=== PATIENT | female | born 1970 | race Caucasian/White ===

== ENCOUNTER 2018-11-24 06:20 | Day surgery (SDC) | payer BC ==
[~2018-11-24 06:20] MED LIST: CEFAZOLIN 2 GM/50 ML (PMX) 50 ML IVPB
[2018-11-24] MEDS: SOD CHLORIDE 0.9% 1,000 ML IV (06:42)
[2018-11-24] MEDS ORDERED: BACITRACIN 0.9 GM OINT (07:58)
[2018-11-24] MEDS ORDERED: BUPIVACAINE 0.5% (SDV) 30 ML INJ (07:58)
[2018-11-24] MEDS ORDERED: FENTAnyl 50 MCG/ML VIAL (08:29)
[2018-11-24] MEDS ORDERED: MIDAZOLAM 1 MG/ML 2 ML INJ (08:30)
[2018-11-24] MEDS ORDERED: ONDANSETRON 4 MG INJ (08:31)
[2018-11-24] MEDS: LIDOCAINE 1% (MPF) 30 ML INJ (09:00)
[2018-11-24] MEDS: BUPIVACAINE 0.5%/EPI (SDV) 30 ML INJ (09:00)
[2018-11-24] MEDS: BACITRACIN/POLYMYXIN 28.35 GM OINT TOP (09:00)
[2018-11-24] MEDS ORDERED: LIDOCAINE 2% (SDV) 5 ML INJ (09:06)
[2018-11-24] MEDS ORDERED: PROPOFOL 40 ML (09:06)
[2018-11-24] MEDS ORDERED: CEFAZOLIN 1 GM INJ (09:06)
[2018-11-24] MEDS ORDERED: MEPERIDINE 25 MG INJ IV (09:30)
[2018-11-24] MEDS ORDERED: FENTAnyl 50 MCG/ML VIAL IV (09:30)
[2018-11-24] MEDS ORDERED: DIPHENHYDRAMINE 50 MG INJ IV (09:30)
[2018-11-24] MEDS ORDERED: METOCLOPRAMIDE 10 MG INJ IV (09:30)
[2018-11-24] MEDS ORDERED: ONDANSETRON 4 MG INJ IV (09:30)
[2018-11-24] MEDS ORDERED: HYDROmorphONE 1 MG/5 ML IV SYRINGE IV ×2 (09:30)
== END 2018-11-24 10:29 | disposition home or self-care (01) ==
LOC: SDS 06:20
DX: L72.3 Sebaceous cyst (principal)
CPT/HCPCS: 11426